=== PATIENT | male | born 1985 | race Caucasian/White ===

== ENCOUNTER 2017-06-01 11:09 | Inpatient (IN) | payer MEDICAID ==
[~2017-06-01] VITALS: Ht 167.6 cm; Wt 70.2 kg
[2017-06-01 11:58] LABS: BASOPHILS # (AUTO) 0.03 K/uL (0.00-0.20); BASOPHILS % (AUTO) 0.2 % (0.0-2.0); EOSINOPHILS # (AUTO) 0.01 K/uL (0.00-0.70); EOSINOPHILS % (AUTO) 0.07 % (1.0-6.0); HEMATOCRIT 47.8 % (41-53); HEMOGLOBIN 16.3 g/dL (13.5-17.5); LYMPHOCYTES # (AUTO) 1.4 K/uL (1.0-4.8); LYMPHOCYTES % (AUTO) 10.1 % (22.0-44.0); MEAN CORPUSCULAR HEMOGLOBIN 29.9 pg (26.0-34.0); MEAN CORPUSCULAR HGB CONC 34.2 G/dL (31.0-37.0); MEAN CORPUSCULAR VOLUME 87 fL (80-100); MONOCYTES # (AUTO) 0.5 K/uL (0.1-1.0); MONOCYTES % (AUTO) 3.3 % (2.0-9.0); NEUTROPHILS # (AUTO) 11.9 K/uL (1.8-7.7); NEUTROPHILS % (AUTO) 86.3 % (40.0-70.0); PLATELET COUNT (AUTO) 175 K/uL (150-450); RED BLOOD CELL COUNT(AUTO) 5.47 MIL/uL (4.50-5.90); RED CELL DISTRIBUTION WIDTH 12.8 % (11.5-14.5)
[2017-06-01 12:00] LABS: AMPHET/METH SCREEN,URINE NEGATIVE (NEGATIVE); BARBITURATE SCREEN, URINE NEGATIVE (NEGATIVE); BENZODIAZEPINES SCREEN,URINE NEGATIVE (NEGATIVE); CANNABINOID SCREEN,URINE POSITIVE (NEGATIVE); COCAINE SCREEN,URINE NEGATIVE (NEGATIVE); METHADONE SCREEN, URINE NEGATIVE (NEGATIVE); OPIATE SCREEN,URINE NEGATIVE (NEGATIVE)
[2017-06-01 12:01] LABS: PHENCYCLIDINE SCREEN,URINE NEGATIVE (NEGATIVE)
[2017-06-01 12:10] LABS: ANION GAP 17 mmol/L (8-16); CALCIUM, TOTAL 9.5 mg/dL (8.8-10.5); CARBON DIOXIDE 20 mmol/L (22-29); CHLORIDE 101 mmol/L (98-107); CREATININE 1.02 mg/dL (0.60-1.30); GLOMERULAR FILTR. RATE CALC > 60 mL/min (>60); GLUCOSE,RANDOM 111 mg/dL (70-110); POTASSIUM 3.2 mmol/L (3.5-5.1); SODIUM SERUM 138 mmol/L (136-145); UREA NITROGEN, BLOOD 13 mg/dL (7-18)
[2017-06-01 12:20] LABS: ALANINE AMINOTRANSFERASE 52 U/L (12-78); ALBUMIN 4.6 g/dL (3.4-5.0); ALKALINE PHOSPHATASE 86 U/L (46-116); ASPARTATE AMINOTRANSFERASE 172 U/L (15-37); BILIRUBIN,TOTAL 1.1 mg/dL (0.1-1.0); TOTAL PROTEIN, SERUM 8.1 g/dL (6.4-8.2)
[2017-06-01] MEDS ORDERED: HALOPERIDOL LACTATE 5 MG/ML VIAL IM ONE (13:30)
[2017-06-01] MEDS ORDERED: LORazepam 2 MG/ML VIAL IM ONE (13:30)
[2017-06-01 15:45] LABS: APPEARANCE,URINE CLOUDY (CLEAR); GLUCOSE, URINE (UA) NEGATIVE (NEGATIVE); KETONES,URINE >=80 mg/dL (NEGATIVE); LEUKOCYTE ESTERASE ,URINE NEGATIVE (NEGATIVE); NITRATE,URINE NEGATIVE (NEGATIVE); OCCULT BLOOD,URINE LARGE (NEGATIVE); PH,URINE 6.5 (5.0-8.0); PROTEIN,URINE SEE CONFIRM (NEGATIVE); UROBILINOGEN,URINE 0.2 mg/dL (<=1.0)
[2017-06-01 15:46] LABS: BILIRUBIN,URINE PRELIM. POSITIVE (NEGATIVE)
[2017-06-01 15:56] LABS: SULFOSALICYLIC ACID,URINE 1+ (Negative)
[2017-06-01 15:57] LABS: MUCUS,URINE Moderate LPF (None Seen)
[2017-06-01 15:58] LABS: BACTERIA,URINE Moderate /HPF (None Seen)
[2017-06-01 15:59] LABS: SQUAMOUS EPITHELIAL CELL,UR Few /LPF (None Seen)
[2017-06-01 16:35] VITALS: BP 105/61
[2017-06-02 06:54] LABS: CHOL/HDL RATIO 2.6 (4.2-7.3)
[2017-06-02] MEDS ORDERED: POTASSIUM CHLORIDE 20 MEQ ER TABLET PO ONE (07:15)
[2017-06-02] MEDS ORDERED: MAG HYDROX/AL HYDROX/SIMETH ES 30 ML SUSPENSION UDCUP PO PRN (07:15)
[2017-06-02] MEDS ORDERED: LOPERAMIDE HCL 2 MG CAPSULE PO PRN (07:15)
[2017-06-02] MEDS ORDERED: IBUPROFEN 600 MG TABLET PO PRN (07:15)
[2017-06-02] MEDS ORDERED: MAGNESIUM HYDROXIDE SUSPENSION 30 ML UDCUP PO PRN (07:15)
[2017-06-02] MEDS ORDERED: BENZOCAINE/MENTHOL LOZENGE [8 LOZENGES/PACKET] MM PRN (07:15)
[2017-06-02] MEDS ORDERED: ALBUTEROL SULFATE HFA 90 MCG/PUFF 8 GM INHALER IH PRN (07:15)
[2017-06-02] MEDS ORDERED: PETROLATUM,WHITE 71 GM JELLY TP PRN (07:15)
[2017-06-02] MEDS ORDERED: ACETAMINOPHEN 325 MG TABLET PO PRN (07:15)
[2017-06-02] MEDS ORDERED: CloNIDine HCL 0.1 MG TABLET PO PRN (07:15)
[2017-06-02] MEDS ORDERED: ONDANSETRON HCL 4 MG TABLET PO PRN (07:15)
[2017-06-02] MEDS ORDERED: BACITRACIN 28.4 GM OINTMENT TP PRN (07:15)
[2017-06-02] MEDS: NITROFURANTOIN/NITROFURAN MAC 100 MG CAPSULE [MACROBID] PO SCH ×2 (08:22→17:20)
[2017-06-02 08:35] VITALS: BP 139/67
[2017-06-02] MEDS: NICOTINE 21 MG/24 HOUR PATCH TD SCH (08:46)
[2017-06-02] MEDS: OXYMETAZOLINE HCL 0.05% 15 ML NASAL SPRAY NASAL SCH (17:20)
[2017-06-02] MEDS: RisperiDONE 3 MG TABLET PO SCH (17:20)
[2017-06-02 19:45] VITALS: BP 131/74
[2017-06-02] MEDS: ZOLPIDEM TARTRATE 10 MG TABLET PO PRN (23:50)
[2017-06-03 00:57] VITALS: BP 130/76
[2017-06-03 07:06] LABS: BASOPHILS # (AUTO) 0.04 K/uL (0.00-0.20); BASOPHILS % (AUTO) 0.5 % (0.0-2.0); HEMATOCRIT 49.4 % (41-53); LYMPHOCYTES # (AUTO) 2.4 K/uL (1.0-4.8); LYMPHOCYTES % (AUTO) 32.3 % (22.0-44.0); MEAN CORPUSCULAR HEMOGLOBIN 29.9 pg (26.0-34.0); MEAN CORPUSCULAR HGB CONC 34.3 G/dL (31.0-37.0); MEAN CORPUSCULAR VOLUME 87 fL (80-100); MONOCYTES # (AUTO) 0.7 K/uL (0.1-1.0); MONOCYTES % (AUTO) 9.5 % (2.0-9.0); NEUTROPHILS # (AUTO) 3.9 K/uL (1.8-7.7); NEUTROPHILS % (AUTO) 53.6 % (40.0-70.0); PLATELET COUNT (AUTO) 201 K/uL (150-450); RED BLOOD CELL COUNT(AUTO) 5.68 MIL/uL (4.50-5.90); RED CELL DISTRIBUTION WIDTH 12.9 % (11.5-14.5)
[2017-06-03 07:34] LABS: POTASSIUM 2.8 mmol/L (3.5-5.1)
[2017-06-03] MEDS: RisperiDONE 3 MG TABLET PO SCH ×2 (07:51→17:21)
[2017-06-03] MEDS: NITROFURANTOIN/NITROFURAN MAC 100 MG CAPSULE [MACROBID] PO SCH ×2 (07:51→16:04)
[2017-06-03] MEDS: OXYMETAZOLINE HCL 0.05% 15 ML NASAL SPRAY NASAL SCH ×2 (07:51→16:03)
[2017-06-03] MEDS: NICOTINE 21 MG/24 HOUR PATCH TD SCH (07:55)
[2017-06-03] MEDS: LORazepam 2 MG TABLET PO PRN (07:55)
[2017-06-03 08:54] VITALS: BP 133/87
[2017-06-03] MEDS: POTASSIUM CHLORIDE 20 MEQ ER TABLET PO SCH ×2 (08:58→16:05)
[2017-06-03 16:05] VITALS: BP 112/62
[2017-06-04] MEDS: ZOLPIDEM TARTRATE 10 MG TABLET PO PRN ×2 (00:42→20:31)
[2017-06-04 00:43] VITALS: BP 118/74
[2017-06-04 08:23] VITALS: BP 122/86
[2017-06-04] MEDS: RisperiDONE 3 MG TABLET PO SCH ×2 (09:06→16:38)
[2017-06-04] MEDS: NICOTINE 21 MG/24 HOUR PATCH TD SCH (09:08)
[2017-06-04] MEDS: OXYMETAZOLINE HCL 0.05% 15 ML NASAL SPRAY NASAL SCH ×2 (09:09→16:38)
[2017-06-04 17:57] VITALS: BP 144/85
[2017-06-05 05:16] VITALS: BP 115/80
[2017-06-05 08:15] VITALS: BP 148/90
[2017-06-05] MEDS: RisperiDONE 3 MG TABLET PO SCH ×2 (08:17→17:36)
[2017-06-05] MEDS: NICOTINE 21 MG/24 HOUR PATCH TD SCH (08:17)
[2017-06-05] MEDS: OXYMETAZOLINE HCL 0.05% 15 ML NASAL SPRAY NASAL SCH (08:22)
[2017-06-05 17:55] VITALS: BP 110/64
[2017-06-05] MEDS: ZOLPIDEM TARTRATE 10 MG TABLET PO PRN (22:43)
[2017-06-06] MEDS: RisperiDONE 3 MG TABLET PO SCH ×2 (08:07→16:32)
[2017-06-06 08:15] VITALS: BP 137/83
[2017-06-06] MEDS ORDERED: POTASSIUM CHLORIDE 20 MEQ ER TABLET PO ONE (08:30)
[2017-06-06] MEDS: NICOTINE 21 MG/24 HOUR PATCH TD SCH (09:00)
[2017-06-06 16:40] VITALS: BP 141/72
[2017-06-06] MEDS: LORazepam 2 MG TABLET PO PRN (18:59)
[2017-06-07] MEDS: RisperiDONE 3 MG TABLET PO SCH ×2 (08:05→17:42)
[2017-06-07] MEDS: NICOTINE 21 MG/24 HOUR PATCH TD SCH (08:14)
[2017-06-07 09:13] VITALS: BP 126/84
[2017-06-07 16:30] VITALS: BP 129/90
[2017-06-08 08:00] VITALS: BP 126/88
[2017-06-08] MEDS: RisperiDONE 3 MG TABLET PO SCH ×2 (08:43→16:01)
[2017-06-08] MEDS: NICOTINE 21 MG/24 HOUR PATCH TD SCH (09:00)
[2017-06-08] MEDS: SODIUM CHLORIDE 0.65% 44 ML NASAL SPRAY NASAL PRN (12:02)
[2017-06-08] MEDS: LORazepam 2 MG TABLET PO PRN (16:03)
[2017-06-08 16:30] VITALS: BP 130/90
[2017-06-09 08:15] VITALS: BP 137/78
[2017-06-09] MEDS: LORazepam 2 MG TABLET PO PRN (08:37)
[2017-06-09] MEDS: SODIUM CHLORIDE 0.65% 44 ML NASAL SPRAY NASAL PRN (08:37)
[2017-06-09] MEDS: RisperiDONE 3 MG TABLET PO SCH ×2 (08:37→16:26)
[2017-06-09] MEDS: NICOTINE 21 MG/24 HOUR PATCH TD SCH (09:00)
[2017-06-09 16:27] VITALS: BP 128/76
[2017-06-10 03:53] VITALS: BP 138/72
[2017-06-10 08:00] VITALS: BP 128/86
[2017-06-10] MEDS: NICOTINE 21 MG/24 HOUR PATCH TD SCH (09:00)
[2017-06-10] MEDS: RisperiDONE 3 MG TABLET PO SCH ×2 (09:05→17:40)
[2017-06-10] MEDS: ZOLPIDEM TARTRATE 10 MG TABLET PO PRN (20:57)
[2017-06-10] MEDS: HALOPERIDOL 5 MG TABLET PO PRN (20:57)
[2017-06-11 01:39] VITALS: BP 138/76
[2017-06-11] MEDS: RisperiDONE 3 MG TABLET PO SCH ×2 (09:50→17:09)
[2017-06-11] MEDS: NICOTINE 21 MG/24 HOUR PATCH TD SCH (09:50)
[2017-06-11 11:14] VITALS: BP 141/93
[2017-06-11] MEDS: SODIUM CHLORIDE 0.65% 44 ML NASAL SPRAY NASAL PRN (13:05)
[2017-06-11] MEDS: HALOPERIDOL 5 MG TABLET PO PRN (13:13)
[2017-06-11 17:38] VITALS: BP 130/79
[2017-06-11] MEDS: OXYMETAZOLINE HCL 0.05% 15 ML NASAL SPRAY NASAL SCH (19:55)
[2017-06-12] MEDS: HALOPERIDOL 5 MG TABLET PO PRN (05:40)
[2017-06-12 05:41] VITALS: BP 126/78
[2017-06-12 08:00] VITALS: BP 121/89
[2017-06-12] MEDS: NICOTINE 21 MG/24 HOUR PATCH TD SCH (09:39)
[2017-06-12] MEDS: OXYMETAZOLINE HCL 0.05% 15 ML NASAL SPRAY NASAL SCH ×2 (09:39→16:57)
[2017-06-12] MEDS: RisperiDONE 3 MG TABLET PO SCH ×2 (09:39→16:57)
[2017-06-12 16:33] VITALS: BP 128/82
[2017-06-12] MEDS: ZOLPIDEM TARTRATE 10 MG TABLET PO PRN (22:40)
[2017-06-13 02:45] VITALS: BP 136/84
[2017-06-13] MEDS: HALOPERIDOL 5 MG TABLET PO PRN ×3 (05:39→13:00)
[2017-06-13 08:00] VITALS: BP 138/87
[2017-06-13] MEDS: RisperiDONE 3 MG TABLET PO SCH (08:16)
[2017-06-13] MEDS: OXYMETAZOLINE HCL 0.05% 15 ML NASAL SPRAY NASAL SCH (08:20)
[2017-06-13] MEDS: NICOTINE 21 MG/24 HOUR PATCH TD SCH (08:20)
[2017-06-13] MEDS ORDERED: RISP3 PO (09:39)
== END 2017-06-13 14:45 | disposition home or self-care (01) | DRG 750 ==
LOC: EMS 11:11 → 3EC 13:32
PROVIDERS: ADMIT Psychiatry & Neurology Psychiatry; ATTEND Psychiatry & Neurology Psychiatry
DX: F20.0 Paranoid schizophrenia (principal); F29 Unspecified psychosis not due to a substance or known physiological condition; N39.0 Urinary tract infection, site not specified; Z59.0 Homelessness; E87.6 Hypokalemia; F12.90 Cannabis use, unspecified, uncomplicated; F17.210 Nicotine dependence, cigarettes, uncomplicated; K21.9 Gastro-esophageal reflux disease without esophagitis; R73.9 Hyperglycemia, unspecified; Z71.6 Tobacco abuse counseling
CPT/HCPCS: 80074; 83036; 84132; 87086; 96372; 99285; G0480; J1630; J2060; J3535